=== PATIENT | female | born 1955 | race Caucasian/White ===

== ENCOUNTER 2022-10-05 14:53 | Emergency (ER) | payer MEDICARE, OTHER ==
[~2022-10-05] VITALS: Ht 157.5 cm; Wt 91.8 kg
[2022-10-05] MEDS ORDERED: dexamethasone sod phosphate 10mg/ml inj IM STA (15:05)
[2022-10-05] MEDS ORDERED: diphenhydrAMINE 50 mg/ml inj IM ONE (15:05)
[2022-10-05] MEDS ORDERED: naphazoline/pheniramine eye 1 DROP BOTTLE EACHEYE PRN (15:15)
[2022-10-05 16:02] VITALS: BP 146/77
== END 2022-10-05 16:11 | disposition home or self-care (01) ==
LOC: ER 14:54
DX: T78.49XA Other allergy, initial encounter (principal); I10 Essential (primary) hypertension; X58.XXXA Exposure to other specified factors, initial encounter
CPT/HCPCS: 96372; 99284; J1100; J1200